=== PATIENT | male | born 1990 | race Hispanic/Latino ===

== ENCOUNTER 2018-07-08 22:53 | Emergency (ER) | payer OTHER ==
[2018-07-08 23:02] VITALS: BP 124/70
--- NOTE | 2018-07-08 23:04 | Emergency Department Report ---
Chief Complaint: Wound/Laceration Stated Complaint: RIGHT THUMB LACERATION Time Seen by Provider: 07/08/18 23:00 - HPI History of Present Illness: Pt presents with c/o laceration to the right thumb that occurred just [employer] Pt states he was chipping ice and got cut by a piece of glass pt is experiencing tingling in the thumb he is unable to move the thumb at the PIP bleeding controlled with gauze last tetanus in 2014 MSE complete MSE screening note: Focused history and physical exam performed. Due to findings the following was ordered: xr right hand ED Disposition for MSE Condition: Stable
--- NOTE | 2018-07-08 23:58 | XRay Report ---
PROCEDURE: XR HAND 2V RT TECHNIQUE: Frontal and lateral views right hand HISTORY: laceration by piece of glass to the right thumb COMPARISONS: None FINDINGS: Visualization of detail of the soft tissues of the thumb is limited by overlying dressing material. There is no evidence of fracture or subluxation. The joint spaces are maintained. There is no definite evidence of radiopaque foreign body. However, a subtle or small radiopaque forei gn body in the region of the thumb could be missed due to artifact created by dressing material. IMPRESSION: 1. No evidence of fracture or subluxation. 2. No definite evidence of radiopaque foreign body. However, a subtle or small radiopaque foreign bod y in the region of the thumb could be missed due to artifact created by dressing material. If there is a persistent clinical concern for radiopaque foreign body, repeat imaging without dressin g material in the area of interest may be helpful. This document is electronically signed by Kitty Zaldivar MD., July 08 2018 11:56:42 PM ET
--- NOTE | 2018-07-09 02:00 | Emergency Department Report ---
ED Upper Extremity Inj HPI - General Chief Complaint: Wound/Laceration Stated Complaint: RIGHT THUMB LACERATION Time Seen by Provider: 07/08/18 23:00 Source: patient Mode of arrival: Ambulatory Limitations: No Limitations - History of Present Illness Initial Comments: There is a 27-year-old white male who presents for right thumb laceration volar side moderately patient states he cut his right thumb on a glass approximately 4 cm proximal to thumb joint surgery some pain and difficulty with flexion there is no numbness no tingling pain is 5/10 bleeding controlled by direct pressure self applied MD Complaint: Injury to:: right Onset/Timin -: hour(s) Other Extremity Injury: Fingers: Right (thumb) Other Injuries: none Handedness: right Place: home Severity scale (0 -10): 4 Improves With: none Worsens With: none Context: laceration Associated Symptoms: other (decreased flexion ) - Related Data Previous Rx's Medication Instructions Recorded Last Taken Type Bacitracin/Polymyxin B Sulfate 1 applicatio TP BID 14 Days #1 tube 07/09/18 Unknown Rx [Bacitracin-Polymyxin Ointment] cephALEXin [Keflex] 500 mg PO Q8HR 10 Days #30 cap 07/09/18 Unknown Rx traMADol [Ultram] 50 mg PO Q6HR PRN #12 tablet 07/09/18 Unknown Rx Allergies Allergy/AdvReac Type Severity Reaction Status Date / Time No Known Allergies Allergy Verified 07/08/18 22:55 ED Review of Systems ROS: Stated complaint: RIGHT THUMB LACERATION Other details as noted in HPI Constitutional: denies: chills, fever Eyes: denies: eye pain, eye discharge, vision change ENT: denies: ear pain, throat pain Respiratory: denies: cough, shortness of breath, wheezing Cardiovascular: denies: chest pain, palpitations Endocrine: no symptoms reported Gastrointestinal: denies: abdominal pain, nausea, diarrhea Genitourinary: denies: urgency, dysuria Musculoskeletal: other (right thumb laceration ). 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 - Social History Smoking Status: Never Smoker - Medications Home Medications: Home Medications Medication Instructions Recorded Confirmed Last Taken Type Bacitracin/Polymyxin B Sulfate 1 applicatio TP BID 14 Days #1 tube 07/09/18 Unknown Rx [Bacitracin-Polymyxin Ointment] cephALEXin [Keflex] 500 mg PO Q8HR 10 Days #30 cap 07/09/18 Unknown Rx traMADol [Ultram] 50 mg PO Q6HR PRN #12 tablet 07/09/18 Unknown Rx ED Physical Exam - General Limitations: No Limitations General appearance: alert, in no apparent distress - Head Head exam: Present: atraumatic, normocephalic - Eye Eye exam: Present: normal appearance - ENT ENT exam: Present: mucous membranes moist - Neck Neck exam: Present: normal inspection, full ROM - Respiratory Respiratory exam: Present: normal lung sounds bilaterally. Absent: respiratory distress - Cardiovascular Cardiovascular Exam: Present: regular rate, normal rhythm. Absent: systolic murmur, diastolic murmur, rubs, gallop - GI/Abdominal GI/Abdominal exam: Present: soft, normal bowel sounds - Rectal Rectal exam: Present: deferred - Extremities Exam Extremities exam: Present: normal inspection, tenderness, normal capillary refill. Absent: joint swelling - Expanded Upper Extremity Exam Right Hand Wrist exam: Present: tenderness, laceration. Absent: full ROM Neuro motor exam: Present: wrist extension intact, thumb opposition intact, thumb adduction intact. Absent: thumb IP flexion intact (right thumb IP flexion restriction ), fingers 2-5 abduction intact Neurosensory exam: Present: 2-point discrimination, radial nerve intact, ulnar nerve intact, median nerve intact Vascular: Present: normal capillary refill, radial pulse, brachial pulse, ulnar pulse. Absent: vascular compromise, pulse deficit radial art, pulse deficit ulnar art, pulse deficit brachial art - Back Exam Back exam: Present: normal inspection, full ROM. Absent: tenderness, CVA tenderness (R), CVA tenderness (L), muscle spasm, paraspinal tenderness, vertebral tenderness, rash noted - Neurological Exam Neurological exam: Present: alert, oriented X3, CN II-XII intact, normal gait, reflexes normal. Absent: motor sensory deficit - Psychiatric Psychiatric exam: Present: normal affect, normal mood - Skin Skin exam: Present: warm, dry, intact, normal color. Absent: rash ED Course Vital Signs 07/08/18 23:00 Temperature 98.0 F Pulse Rate 72 Respiratory 18 Rate Blood Pressure 124/70 O2 Sat by Pulse 95 Oximetry - Laceration /Wound Repair Right Palm Finger Wound Location: upper extremity Wound Length (cm): 3 Wound's Depth, Shape: into muscle, irregular Wound Explored: clean Irrigated w/ Saline (ccs): 40 Betadine Prep?: Yes Anesthesia: 1% Lidocaine Volume Anesthetic (ccs): 2 Wound Debrided: minimal Wound Repaired With: sutures Suture Size/Type: 4:0, proline Number of Sutures: 8 (running ) Layer Closure?: No Sterile Dressing Applied?: Yes Progress: right thumb volar side laceration 3 cm noted decrease in flexor tendon function mild bleeding , xray no fracture no foreign bodys, wound cleaned with betadine solution, anesthesia with 1% saline via digital block wound irrigated with 40 cc sterile saline, wound exlpored visually no foriegn bodies noted, closed with 4.0 proline x 8 sutures running all bleeding is controlled distal pulse are intact, 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 ED Medical Decision Making - Radiology Data Radiology results: report reviewed, image reviewed cc: EDA HAWKINS Fluoro Time In Minutes: PROCEDURE: XR HAND 2V RT TECHNIQUE: Frontal and lateral views right hand HISTORY: laceration by piece of glass to the right thumb COMPARISONS: None FINDINGS: Visualization of detail of the soft tissues of the thumb is limited by overlying dressing material. There is no evidence of fracture or subluxation. The joint spaces are maintained. There is no definite evidence of radiopaque foreign body. However, a subtle or small radiopaque foreign body in the region of the thumb could be missed due to artifact created by dressing material. IMPRESSION: 1. No evidence of fracture or subluxation. 2. No definite evidence of radiopaque foreign body. However, a subtle or small radiopaque foreign body in the region of the thumb could be missed due to artifact created by dressing material. If there is a persistent clinical concern for radiopaque foreign body, repeat imaging without dressing material in the area of interest may be helpful. This document is electronically signed by Kitty Zaldivar MD., July 08 2018 11:56:42 PM ET Transcribed By: ED Dictated By: KITTY ZALDIVAR MD Electronically Authenticated By: KITTY ZALDIVAR MD Signed Date/Time: 07/08/182357 DD/ 42 TD/TT: 07/08/182342 - Medical Decision Making right thumb laceration see procedure note, pt will follow up with ortho in am Dr Barragan, given tetanus, ancef, will dc to home with rx for keflex, ultram, pt verbalizzed understanding with discharge instructions including follow up in am with orthopedic surgery, pt is currently a/o x 3 ambulatory with steady gait at this time. Critical care attestation.: If time is entered above; I have spent that time in minutes in the direct care of this critically ill patient, excluding procedure time. ED Disposition Clinical Impression: Tendon injury Thumb laceration Qualifiers: Encounter type: initial encounter Damage to nail status: without damage Foreign body presence: without foreign body Laterality: right Qualified Code(s): S61.011A - Laceration without foreign body of right thumb without damage to nail, initial encounter Disposition: DC-01 TO HOME OR SELFCARE Is pt being admited?: No Does the pt Need Aspirin: No Condition: Stable Instructions: Laceration (ED), Suture Care (ED) Prescriptions: Bacitracin/Polymyxin B Sulfate [Bacitracin-Polymyxin Ointment] 1 applicatio TP BID 14 Days #1 tube cephALEXin [Keflex] 500 mg PO Q8HR 10 Days #30 cap traMADol [Ultram] 50 mg PO Q6HR PRN #12 tablet PRN Reason: Pain Referrals: MARLENE BARRAGAN MD [Staff Physician] - 3-5 Days Forms: Work/School Release Form(ED) Time of Disposition: 02:25
[2018-07-09] MEDS ORDERED: BOOSTRIX IM ONE (02:21)
[2018-07-09] MEDS ORDERED: ANCEF IM ONE (02:21)
[2018-07-09] MEDS ORDERED: NORCO 5/325 PO ONE (02:21)
[2018-07-09] MEDS ORDERED: WATER FOR INJ (PF) ONE (02:36)
== END 2018-07-09 03:22 | disposition home or self-care (01) ==
LOC: ED 22:53
DX: S61.011A Laceration without foreign body of right thumb without damage to nail, initial encounter (principal); W25.XXXA Contact with sharp glass, initial encounter; Y93.89 Activity, other specified; Y92.89 Other specified places as the place of occurrence of the external cause; Y99.8 Other external cause status
CPT/HCPCS: 12002; 73120; 90471; 90715; 96372; 99283; J0690